=== PATIENT | male | born 1935 | race Caucasian/White ===

== ENCOUNTER 2021-07-07 08:46 | Emergency (ER) | payer MEDICARE ==
[~2021-07-07] VITALS: Ht 162.6 cm; Wt 63.5 kg
== END 2021-07-07 09:43 | disposition home or self-care (01) ==
LOC: FSED 08:53
DX: R33.9 Retention of urine, unspecified (principal); Z85.51 Personal history of malignant neoplasm of bladder
CPT/HCPCS: 81003; 99282

== ENCOUNTER 2021-07-10 09:13 | Emergency (ER) | payer MEDICARE ==
[~2021-07-10] VITALS: Ht 162.6 cm; Wt 63.5 kg
== END 2021-07-10 10:02 | disposition home or self-care (01) ==
LOC: ER 09:46
DX: R33.9 Retention of urine, unspecified (principal); T83.098A Other mechanical complication of other urinary catheter, initial encounter; I10 Essential (primary) hypertension; Y84.6 Urinary catheterization as the cause of abnormal reaction of the patient, or of later complication, without mention of misadventure at the time of the procedure; Z85.51 Personal history of malignant neoplasm of bladder
CPT/HCPCS: 99282

== ENCOUNTER 2021-10-06 02:22 | Emergency (ER) | payer MEDICARE ==
[~2021-10-06] VITALS: Ht 162.6 cm; Wt 64.4 kg
[2021-10-06 02:54] LABS: CLARITY,URINE CLOUDY (CLEAR); COLOR,URINE YELLOW (YELLOW); KETONES,URINE NEGATIVE (NEGATIVE); LEUKOCYTE ESTERASE ,URINE MODERATE (NEGATIVE); NITRITE,URINE NEGATIVE (NEGATIVE); PROTEIN,URINE DIPSTICK 1+ (NEGATIVE); URINE UROBILINOGEN 0.2 mg/dL (0.2 - 1)
[2021-10-06 02:57] LABS: WBC,URINE (MAN) >50 /HPF (0-5)
[2021-10-06 02:58] LABS: BACTERIA,URINE MANY /HPF; EPITHELIAL CELLS,URINE FEW /LPF; RBC,URINE 21-50 /HPF (0-5)
[2021-10-06] MEDS ORDERED: CEFUROXIME AXETIL 250 MG TAB PO STA (02:58)
[2021-10-06] MEDS ORDERED: CEFUROXIME250 MG PO (03:10)
[2021-10-06 04:56] VITALS: BP 114/67
== END 2021-10-06 03:30 | disposition home or self-care (01) ==
LOC: ER 02:32
DX: Z46.6 Encounter for fitting and adjustment of urinary device (principal); R33.9 Retention of urine, unspecified; I10 Essential (primary) hypertension; Z85.51 Personal history of malignant neoplasm of bladder; Z85.46 Personal history of malignant neoplasm of prostate
CPT/HCPCS: 51700; 81001; 87086; 87186; 99282